=== PATIENT | female | born 1975 | race Caucasian/White ===

== ENCOUNTER 2021-04-12 08:18 | Emergency (ER) | payer BC, MEDICAID ==
[~2021-04-12] VITALS: Ht 165.1 cm; Wt 60.0 kg
[2021-04-12] MEDS ORDERED: TETANUS, DIPHTHERIA, PERTUSSIS VAC/PF 0.5ML (>7YR OLD) IM ONE (08:30)
[2021-04-12] MEDS ORDERED: ACETAMINOPHEN 325MG TABLET PO ONE (08:30)
[2021-04-12] MEDS ORDERED: BACITRACIN ZINC OINT UDPKT TOP ONE (08:30)
[2021-04-12] MEDS ORDERED: HYDROCODONE/ACETAMINOPHEN 5/325MG TABLET PO ONE (10:00)
[2021-04-12] MEDS ORDERED: ONDANSETRON 4MG ODT PO ONE (10:00)
[2021-04-12 10:12] VITALS: BP 188/94
[2021-04-12] MEDS ORDERED: HYDR-4001 MT ×2 (12:36→13:05)
== END 2021-04-12 13:16 | disposition home or self-care (01) ==
LOC: ER 08:45
DX: S82.201A Unspecified fracture of shaft of right tibia, initial encounter for closed fracture (principal); S59.901A Unspecified injury of right elbow, initial encounter; I10 Essential (primary) hypertension; V09.9XXA Pedestrian injured in unspecified transport accident, initial encounter; Y93.01 Activity, walking, marching and hiking; Y92.89 Other specified places as the place of occurrence of the external cause; Y99.8 Other external cause status
CPT/HCPCS: 29130; 29505; 72192; 73080; 73090; 73140; 73502; 73562; 73700; 90471; 90715; 99285; Q0162